=== PATIENT | male | born 1960 | race Caucasian/White ===

== ENCOUNTER 2016-09-16 21:09 | Emergency (ER) | payer OTHER ==
--- NOTE | ~2016-09-16 | CT99 ---
[facility] A Service of [facility] RADIOLOGY TEXT RESULTS PATIENT: DARNELL MCCARTNEY LOCATION: [facility] : 56 UNIT #: [id number] AGE: [address]: Dorothea Singh MD SEX: M ORDER DR: [id number] [facility] [address] [place], [place] [address] [id number] MR#: [id number] #: [id number] NAME: DARNELL MCCARTNEY : 1960 SEX: M STUDY DATE/TIME: 09/17/2016 01:26 UNIT: [facility] ROOM: STUDY DESCRIPTION: CT Maxillofacial Area W Cont Attending Physician: Dorothea Singh M.D. Ordering Physician: Dorothea Singh M.D. Primary Care Physician: No Primary Care Physician MEDICAL IMAGING REPORT This report is preliminary unless electronic signature is present EXAM CT face, 09/17 at 0126 hours. INDICATIONS Swelling on the left side of the face for 3 days. No trauma. There is redness and pain as well. TECHNIQUE Axial images were obtained through the face following IV contrast administration. Multiplanar reformats were obtained. No comparison. This CT exam was performed with one or more of the following radiation dose reduction techniques: automatic exposure control, adjustment of mA and/or kV according to patient size, and iterative reconstruction. FINDINGS There are no facial bone fractures. There is some mild chronic mucosal thickening in the ethmoid air cells and sphenoid sinuses. There is no evidence of acute sinusitis. The globes are normal. There is marked soft tissue edema with skin thickening around the left orbit and extending into the left temporal scalp and left frontal scalp. No discrete abscess is seen. All of the abnormality appears to be preseptal on the orbit. This presumably reflects severe cellulitis. There are some reactive-appearing submandibular lymph nodes on the left. The salivary glands are grossly normal. The parotid glands are not completely included in the field of view on this exam. IMPRESSION 1. Severe cellulitis in the left side of the face. It surrounds the left orbit and extends into the left frontal and temporal scalp. There is marked skin thickening with subcutaneous edema, but no abscess is seen. All of the inflammation appears preseptal around the left globe. 2. The bones are normal. There is no evidence of acute sinusitis. [facility]. [facility] A Service of [facility] RADIOLOGY TEXT RESULTS PATIENT: DARNELL MCCARTNEY LOCATION: [facility] : 56 UNIT #: [id number] AGE: [address]: Dorothea Singh MD SEX: M ORDER DR: 3. Reactive-appearing submandibular lymph nodes on the left side. 4. The parotid glands are not completely included in the field of view; but, within the visualized parotid glands, no abnormality is seen. This inflammation does appear away from the salivary glands. Dictated by... Adrian To Jr., M.D. THIS IS AN ELECTRONICALLY VERIFIED REPORT Adrian To Jr., M.D. at 09/17/2016 9:53 PM JOSEFINA/boby TD: 09/17/2016 08:29 JOB #: [id number] MEDICAL IMAGING REPORT Page 1 of 1 COPY
[2016-09-17 00:29] LABS: BASOPHIL% 0.4 % (0-2.5); DIFF IND NO; EOSINOPHIL% 0.1 % (0.0-7.0); HEMATOCRIT 46.3 % (38.0-50.0); HEMOGLOBIN 15.5 gm/dL (13.0-16.0); LYMPHOCYTE% 9.5 % (17.0-45.0); MEAN CELL VOLUME 92.1 FL (83-96); MEAN CORPUSCULAR HEMOGLOBIN 30.9 PG (28-34); MEAN CORPUSCULAR HGB CONC 33.6 g/dL (30-36); MEAN PLATELET VOLUME 8.3 FL (6.5-11.5); MONOCYTE% 9.7 % (3.0-12.0); NEUTROPHIL# 8.4 X10e3 (1.5-7.1); NEUTROPHIL% 80.3 % (40-75); PLATELET COUNT 212 X10e3 (140-420); RED BLOOD COUNT 5.02 X10e (3.90-5.60); RED CELL DISTRIBUTION WIDTH 13.1 % (11.0-15.5); WHITE BLOOD COUNT 10.5 X10e3 (4.0-10.5)
[2016-09-17 00:53] LABS: ALBUMIN SERUM 4.4 g/dL (3.5-5.0); BILIRUBIN, DIRECT 0.2 mg/dL (0.0-0.2); BILIRUBIN,INDIRECT 1.3 mg/dL (0.0-0.9); BILIRUBIN,TOTAL 1.5 mg/dL (0.2-2.0); BUN/CREATININE RATIO 18.88; CALCIUM SERUM 9.2 mg/dL (8.4-10.2); CREATININE SERUM 0.9 mg/dL (0.6-1.4); GLOM FILT RATE Estimated 93.8 mL/min (>60); POTASSIUM 3.8 mmol/L (3.5-5.1); PROTEIN TOTAL SERUM 8.2 g/dL (6.0-8.3)
== END 2016-09-17 02:51 | disposition home or self-care (01) ==
LOC: CED 21:09
PROVIDERS: Emergency Medicine
DX: B02.30 Zoster ocular disease, unspecified (principal); Z23 Encounter for immunization; Z87.891 Personal history of nicotine dependence
CPT/HCPCS: 36415; 70487; 80048; 80076; 82947; 85025; 87040; 90471; 90715; 96361; 96365; 96366; 99284; J1885; J2405; J3370; Q9967